=== PATIENT | male | born 1955 | race Hispanic/Latino ===

== ENCOUNTER 2017-02-01 09:10 | Day surgery (SDC) | payer OTHER ==
[2016-09-28 10:59] VITALS: BMI 26.6
[2017-02-01 09:45] VITALS: RESP 18
[2017-02-01] MEDS ORDERED: MethylPREDNISolone Depo 40 mg/ml Inj ONE ×2 (10:19→11:33)
[2017-02-01] MEDS ORDERED: Bupivacaine HCl 0.25% PF (30 ml) Inj ONE (10:19)
[2017-02-01] MEDS ORDERED: Lidocaine 1% Inj (20ml) ONE (10:20)
[2017-02-01] MEDS ORDERED: Iohexol 300 10 ML ONE (10:20)
[2017-02-01] MEDS ORDERED: Propofol 10 mg/ml Inj (20 ML) ONE (10:26)
[2017-02-01] MEDS ORDERED: Midazolam 2 MG/2 ML VIAL ONE ×3 (10:26→11:17)
[2017-02-01] MEDS ORDERED: Lactated Ringer's 1,000 ML IV ONE ×2 (11:08→12:45)
[2017-02-01] MEDS ORDERED: Lidocaine 1% 20 MG/2 ML PF AMP ONE (11:24)
[2017-02-01] MEDS ORDERED: Oxycodone/Acetaminophen 5/325 mg Tab PO PRN (12:17)
[2017-02-01] MEDS ORDERED: Oxycodone/Acetaminophen 5/325 mg Tab PO ONE (13:11)
[2017-02-01 13:50] VITALS: BP 128/67; PULSE 72; TEMP 97.4; O2SAT 97
--- NOTE | 2017-02-03 17:59 | RAD ---
PROCEDURE: Intraoperative fluoroscopy HISTORY: CERVICAL PAIN MANAGEMENT COMPARISON: None available TECHNIQUE: Intraoperative fluoroscopy was provided for epidural spine injection. Total time of fluoroscopy was 47.9 seconds. FINDINGS: Five fluoroscopic spot films are submitted. Films are on file for review. IMPRESSION: Fluoroscopy provided.
== END 2017-02-01 14:10 | disposition home or self-care (01) ==
LOC: H.OPSURG 09:10
PROVIDERS: ATTEND Anesthesiology
DX: M54.2 Cervicalgia (principal); M12.58 Traumatic arthropathy, other specified site; J45.909 Unspecified asthma, uncomplicated; E78.5 Hyperlipidemia, unspecified

== ENCOUNTER 2017-04-23 09:18 | Day surgery (SDC) | payer OTHER ==
[2017-04-23 09:44] VITALS: RESP 20
[2017-04-23 09:53] VITALS: BMI 25.8
[2017-04-23] MEDS ORDERED: Lactated Ringer's 1,000 ML IV ONE (10:08)
[2017-04-23] MEDS ORDERED: MethylPREDNISolone Depo 40 mg/ml Inj ONE (10:27)
[2017-04-23] MEDS ORDERED: Bupivacaine HCl 0.25% PF (30 ml) Inj ONE (10:27)
[2017-04-23] MEDS ORDERED: Iohexol 300 10 ML ONE (10:28)
[2017-04-23] MEDS ORDERED: EPINEPHrine 1 mg/ml (1:1000) Inj ONE (10:33)
[2017-04-23] MEDS ORDERED: Propofol 10 mg/ml Inj (20 ML) ONE (10:40)
[2017-04-23] MEDS ORDERED: Ketamine 50 mg/ml Inj (10 ml) ONE (11:03)
[2017-04-23] MEDS ORDERED: Bupivacaine HCl 0.25% PF (30 ml) Inj IJ ONE (11:20)
[2017-04-23] MEDS ORDERED: MethylPREDNISolone Depo 40 mg/ml Inj IM ONE (11:20)
[2017-04-23] MEDS ORDERED: Lidocaine 1% PF (5ml) Amp INJ ONE (11:20)
[2017-04-23] MEDS ORDERED: Iohexol 300 10 ML IJ ONE (11:25)
[2017-04-23] MEDS ORDERED: HYDROmorphone 0.5 mg/0.5 ml ISec IVP PRN (11:49)
[2017-04-23] MEDS ORDERED: Oxycodone/Acetaminophen 5/325 mg Tab PO PRN (11:50)
[2017-04-23 13:23] VITALS: BP 132/95; PULSE 82; TEMP 96.9
[2017-04-23 14:36] VITALS: O2SAT 98
--- NOTE | 2017-04-24 15:54 | RAD ---
PROCEDURE: Intraoperative Fluoroscopy. HISTORY: EPIDURAL FINDINGS: Fluoroscopic assistance was provided for cervical epidural injections. Please refer to the operative report from during the procedure: 24.4 seconds.
== END 2017-04-23 14:35 | disposition home or self-care (01) ==
LOC: H.OPSURG 09:18
PROVIDERS: ATTEND Anesthesiology
DX: M54.2 Cervicalgia (principal); M12.58 Traumatic arthropathy, other specified site